=== PATIENT | male | born 2000 | race African-American/Black ===

== ENCOUNTER 2023-07-12 15:03 | Inpatient (IN) | payer OTHER ==
[~2023-07-12] VITALS: Ht 175.3 cm; Wt 72.7 kg
[2023-07-12 16:15] LABS: HEMATOCRIT 47.3 % (42.0-52.0); HEMOGLOBIN 16.3 g/dl (13.5-17.5); MEAN CORPUSCULAR HEMOGLOBIN 31.5 pg (27.0-33.0); MEAN CORPUSCULAR HGB CONC 34.5 g/dl (32.0-36.5); MEAN CORPUSCULAR VOLUME 91.5 fl (80.0-96.0); PLATELET COUNT, AUTOMATED 361 10^3/uL (150-450); RED BLOOD COUNT 5.17 10^6/uL (4.30-6.10); WHITE BLOOD COUNT 4.7 10^3/uL (4.0-10.0)
[2023-07-12] MEDS ORDERED: HOME MED LIST COMPLETE! XX SCH (16:35)
[2023-07-12 16:39] LABS: AMPHETAMINES LEVEL URINE NEGATIVE (NEGATIVE); BARBITURATES URINE NEGATIVE (NEGATIVE); BENZODIAZEPINES URINE NEGATIVE (NEGATIVE); CANNABINOIDS URINE NEGATIVE (NEGATIVE); COCAINE METABOLITE URINE NEGATIVE (NEGATIVE); METHADONE URINE NEGATIVE (NEGATIVE); OPIATES URINE NEGATIVE (NEGATIVE); PHENCYCLIDINE URINE NEGATIVE (NEGATIVE)
[2023-07-12 16:40] LABS: ETHYL ALCOHOL (ETHANOL) 0.003 % (0.000-0.010)
[2023-07-12 16:41] LABS: SALICYLATE LEVEL < 3.0 MG/DL (<30)
[2023-07-12 16:45] LABS: ALBUMIN 4.6 G/DL (3.2-5.2); ALKALINE PHOSPHATASE 106 U/L (46-116); ALT/SGPT 24 U/L (7.0-40); AST/SGOT 21 U/L (<34); BILIRUBIN,DIRECT 0.8 MG/DL (<0.4); BLOOD UREA NITROGEN 13 MG/DL (9-23); CALCIUM LEVEL 9.2 MG/DL (8.5-10.1); CARBON DIOXIDE LEVEL 29 MMOL/L (20-31); CHLORIDE LEVEL 106 MMOL/L (98-107); CREATININE FOR GFR 0.93 MG/DL (0.70-1.30); GLOMERULAR FILTRATION RATE > 60.0 (>60); GLUCOSE, FASTING 82 MG/DL (60-100); POTASSIUM SERUM 3.9 MMOL/L (3.5-5.1); SODIUM LEVEL 141 MMOL/L (136-145); THYROID STIMULATING HORMONE 0.372 uIU/ML (0.55-4.78); TOTAL PROTEIN 7.5 G/DL (5.7-8.2)
[2023-07-12 17:06] LABS: BILIRUBIN,TOTAL 2.2 MG/DL (0.3-1.2)
[2023-07-12] MEDS ORDERED: IBUPROFEN 400MG TAB PO PRN (20:30)
[2023-07-12] MEDS ORDERED: MOM 30ML SUSPENSION UDC PO PRN (20:30)
[2023-07-12] MEDS ORDERED: diphenhydrAMINE 25MG CAP PO PRN (20:30)
[2023-07-12] MEDS ORDERED: traZODone 50 MG TAB PO PRN (20:30)
[2023-07-12] MEDS ORDERED: ACETAMINOPHEN TAB 650MG DOSE (2X325MG) PO PRN (20:30)
[2023-07-12] MEDS ORDERED: MAALOX 30 ML SUSP *UDC PO PRN (20:30)
[2023-07-13 01:01] VITALS: BP 109/66; TEMP 98; O2SAT 98
[2023-07-13 06:20] VITALS: BP 111/78; TEMP 97.6; O2SAT 98
[2023-07-13] MEDS ORDERED: NICOTINE 21MG/24HR 1 EA TRANSDERMAL TD PRN (08:05)
[2023-07-13 08:34] LABS: FREE T4 1.19 NG/DL (0.89-1.76)
[2023-07-13 14:29] LABS: ALBUMIN 4.4 G/DL (3.2-5.2); BILIRUBIN,DIRECT 0.9 MG/DL (<0.4); BILIRUBIN,TOTAL 2.4 MG/DL (0.3-1.2); TOTAL PROTEIN 7.1 G/DL (5.7-8.2)
[2023-07-13 14:41] VITALS: BP 135/60; TEMP 97.9; O2SAT 99
[2023-07-14 06:30] VITALS: BP 116/56; TEMP 98.1; O2SAT 100
[2023-07-14 17:49] VITALS: BP 126/67; TEMP 97.8; O2SAT 99
[2023-07-15 06:39] VITALS: BP 119/56; TEMP 98.1; O2SAT 98
[2023-07-15] MEDS ORDERED: NICO21PAT TD (09:21)
== END 2023-07-15 09:52 | disposition home or self-care (01) | DRG 880 ==
LOC: M ED 15:03 → EDBD 15:03 → M ED INP 20:30 → M PSY 22:14
PROVIDERS: ADMIT Student in an Organized Health Care Education/Training Program; ATTEND Student in an Organized Health Care Education/Training Program
DX: F41.9 Anxiety disorder, unspecified (principal); R45.851 Suicidal ideations; F32.A Depression, unspecified; F43.21 Adjustment disorder with depressed mood; G47.00 Insomnia, unspecified; F17.290 Nicotine dependence, other tobacco product, uncomplicated; E05.80 Other thyrotoxicosis without thyrotoxic crisis or storm; E80.6 Other disorders of bilirubin metabolism; D75.A Glucose-6-phosphate dehydrogenase (G6PD) deficiency without anemia; Z81.1 Family history of alcohol abuse and dependence; Z91.51 Personal history of suicidal behavior; Z63.0 Problems in relationship with spouse or partner; Z11.52 Encounter for screening for COVID-19